=== PATIENT | male | born 1945 | race Caucasian/White ===

== ENCOUNTER 2019-02-08 04:24 | Emergency (ER) | payer MEDICARE ==
[~2019-02-08] VITALS: Ht 188 cm; Wt 64.6 kg
[2019-02-08] MEDS ORDERED: normal saline 1000ML IV soln IVB ONE (05:05)
[2019-02-08 05:42] LABS: BASOPHILS % (AUTO) 0.9 % (0-1); EOSINOPHILS # (AUTO) 0.2 X10'3 (0-0.9); EOSINOPHILS % (AUTO) 6.1 % (0-6); HEMATOCRIT 41.4 % (42.0-52.0); HEMOGLOBIN 14.1 g/dl (14.0-17.9); LYMPHOCYTES # (AUTO) 1.3 X10'3 (1.1-4.8); LYMPHOCYTES % (AUTO) 37.2 % (21-51); MEAN CORPUSCULAR VOLUME 97.1 FL (78-98); MEAN PLATELET VOLUME 8.5 FL (7.4-10.4); MONOCYTES # (AUTO) 0.5 X10'3 (0-0.9); MONOCYTES % (AUTO) 12.9 % (2-12); NEUTROPHILS # (AUTO) 1.5 X10'3 (1.8-7.7); NEUTROPHILS % (AUTO) 42.9 % (42-75); PLATELET COUNT 149 X10'3 (140-440); RED BLOOD COUNT 4.26 X10'6 (4.70-6.10); RED CELL DISTRIBUTION WIDTH 13.3 % (11.5-14.5); WHITE BLOOD COUNT 3.6 X10'3 (4.5-11.0)
[2019-02-08 05:55] LABS: ALANINE AMINOTRANSFERASE 18 U/L (12-78); ALBUMIN 3.5 G/DL (3.4-5.0); ALBUMIN/GLOBULIN RATIO 1.5 (1.1-1.5); ALKALINE PHOSPHATASE 58 IU/L (46-116); ANION GAP 7 (8-16); ASPARTATE AMINO TRANSFERASE 13 U/L (10-37); BILIRUBIN,TOTAL 0.8 MG/DL (0.1-1.0); BLOOD UREA NITROGEN 19 MG/DL (7-18); BUN/CREATININE RATIO 19.4 (5.4-32.0); CALCIUM 8.8 MG/DL (8.5-10.1); CHLORIDE 107 MMOL/L (99-107); CREATININE 0.98 MG/DL (0.60-1.10); GLUCOSE 103 MG/DL (70-104); POTASSIUM 3.8 MMOL/L (3.5-5.1); SODIUM 141 MMOL/L (135-145); TOTAL CARBON DIOXIDE 26.9 MMOL/L (24-32); TOTAL PROTEIN 5.9 G/DL (6.4-8.2); eGFR 75 ML/MIN
[2019-02-08 06:04] LABS: MAGNESIUM 1.9 MG/DL (1.5-2.4)
[2019-02-08 06:17] LABS: INR 1.1 INR; PARTIAL THROMBOPLASTIN TIME 26 SECONDS (22-32); PROTHROMBIN TIME 11.3 SECONDS (9.0-12.0)
[2019-02-08 06:58] VITALS: BP 112/75
== END 2019-02-08 06:59 | disposition home or self-care (01) ==
LOC: ER 04:26
DX: R00.1 Bradycardia, unspecified (principal); R42 Dizziness and giddiness
CPT/HCPCS: 36415; 70450; 71045; 80053; 83735; 84443; 84484; 85025; 85610; 85730; 93005; 99284; J7030

== ENCOUNTER 2019-05-14 11:59 | Outpatient (CLI) | payer MEDICARE ==
[2019-05-14] VITALS (24 sets, daily range): BP systolic 99–134; BP diastolic 64–81
== END 2019-05-14 23:59 | disposition home or self-care (01) ==
LOC: CARD DIAG 11:59
PROVIDERS: ATTEND Internal Medicine Cardiovascular Disease
DX: R42 Dizziness and giddiness (principal)
CPT/HCPCS: 93660

== ENCOUNTER 2024-09-14 09:02 | Day surgery (SDC) | payer MEDICARE, OTHER ==
[2024-09-11 09:48] LABS: BASOPHILS # (AUTO) 0.1 X10'3 (0-0.2); BASOPHILS % (AUTO) 1.4 % (0-1); EOSINOPHILS # (AUTO) 0.1 X10'3 (0-0.9); EOSINOPHILS % (AUTO) 3.4 % (0-6); HEMATOCRIT 42.9 % (42.0-52.0); HEMOGLOBIN 14.4 g/dl (14.0-17.9); LYMPHOCYTES # (AUTO) 1.3 X10'3 (1.1-4.8); LYMPHOCYTES % (AUTO) 32.5 % (21-51); MEAN CORPUSCULAR HEMOGLOBIN 33.3 PG (27.0-31.0); MEAN CORPUSCULAR HGB CONC 33.6 g/dL (33.0-36.5); MEAN CORPUSCULAR VOLUME 99.2 FL (78-98); MEAN PLATELET VOLUME 8.4 FL (7.4-10.4); MONOCYTES # (AUTO) 0.5 X10'3 (0-0.9); NEUTROPHILS % (AUTO) 50.7 % (42-75); PLATELET COUNT 189 X10'3 (140-440); RED BLOOD COUNT 4.32 X10'6 (4.70-6.10); RED CELL DISTRIBUTION WIDTH 14.8 % (11.5-14.5); WHITE BLOOD COUNT 3.9 X10'3 (4.5-11.0)
[2024-09-11 09:55] LABS: ALBUMIN 3.7 G/DL (3.4-5.0); ANION GAP 3 (8-16); BLOOD UREA NITROGEN 16 MG/DL (7-18); BUN/CREATININE RATIO 14.5 (10.0-20.0); CHLORIDE 107 MMOL/L (99-107); GLUCOSE 66 MG/DL (70-104); POTASSIUM 4.2 MMOL/L (3.5-5.1); SODIUM 143 MMOL/L (135-145); TOTAL CARBON DIOXIDE 32.7 MMOL/L (24-32); eGFR 65 ML/MIN
[2024-09-11 09:56] LABS: APTT 27 SECONDS (22-32); INR 1.1 INR; PROTHROMBIN TIME 11.2 SECONDS (9.0-12.0)
[2024-09-14] VITALS (10 sets, daily range): BP systolic 116–144; BP diastolic 62–85; PULSE 48–81; RESP 10–12; TEMP 97.8; O2SAT 94–99
[~2024-09-14] VITALS: Ht 188 cm; Wt 78.0 kg
[2024-09-14] MEDS ORDERED: normal saline 1000ml 1,000 ML IV SCH (09:15)
[2024-09-14] MEDS ORDERED: ceFAZolin 2gm in dextrose, iso 50 ML IV ONE (09:15)
[2024-09-14] MEDS ORDERED: TURM500C4 PO (09:43)
[2024-09-14] MEDS ORDERED: DULO-31 PO (09:43)
[2024-09-14] MEDS ORDERED: MAGN300C PO (09:43)
[2024-09-14] MEDS ORDERED: APIX5TAB3 PO (09:43)
[2024-09-14] MEDS ORDERED: midazolam 1 mg/ML 2ml injection ONE (13:12)
[2024-09-14] MEDS ORDERED: fentaNYL/PF 50MCG/1 ML 2ML syringe ONE (13:12)
[2024-09-14] MEDS ORDERED: LIDOcaine 1% W/epiNEPHrine 1:100,000 20ml vial ONE (13:12)
[2024-09-14] MEDS ORDERED: ceFAZolin 1000mg inj ONE (13:12)
[2024-09-14] MEDS ORDERED: iohexol 350 MG/ML 50ML vial IV ONE (14:04)
[2024-09-14] MEDS ORDERED: HYDROcodone/acetaminophen 5mg/325mg tablet PO PRN (15:40)
[2024-09-14] MEDS ORDERED: HYDROcodone/acetaminophen 10/325mg tab PO PRN (15:40)
[2024-09-14] MEDS ORDERED: METO-539 PO (15:55)
[2024-09-14] MEDS ORDERED: CEPH-585 PO (15:55)
[2024-09-14] MEDS: VANCOMYCIN 1GM 200ML H20 (PEG) 200 ML IV ONE (16:21)
== END 2024-09-14 19:45 | disposition home or self-care (01) ==
LOC: SSTAY O 09:02
PROVIDERS: ATTEND Internal Medicine Cardiovascular Disease
DX: I49.5 Sick sinus syndrome (principal); I48.0 Paroxysmal atrial fibrillation; Z79.01 Long term (current) use of anticoagulants; Z79.899 Other long term (current) drug therapy; Z90.79 Acquired absence of other genital organ(s); Z82.49 Family history of ischemic heart disease and other diseases of the circulatory system
CPT/HCPCS: 33208; 36415; 71046; 80048; 85025; 85610; 85730; 93005; 99152; 99153; A4565; C1785; C1898; J0690; J2250; J3010; J3372; J3490; J7030; Z7610; Q9967